=== PATIENT | female | born 1960 | race Caucasian/White ===

== ENCOUNTER 2016-06-18 13:16 | Emergency (ER) | payer MEDICAID ==
[~2016-06-18] VITALS: Ht 152.4 cm; Wt 75.0 kg
[~2016-06-18 13:16] MED LIST: IBUP-1542 PO; ORPH100T PO
[2016-06-18 13:20] VITALS: Ht 152.4 cm; Wt 75.0 kg
[2016-06-18] MEDS ORDERED: SOD CHLORIDE 0.9% 500 ML IV STA (15:57)
[2016-06-18] MEDS ORDERED: ONDANSETRON 4 MG INJ IV STA (15:57)
[2016-06-18] MEDS ORDERED: KETOROLAC 15 MG INJ IV STA (15:57)
[2016-06-18 16:22] LABS: ADD UMIC NO; URINE BILIRUBIN (Dip) NEGATIVE (NEGATIVE); URINE BLOOD (Dip) NEGATIVE (NEGATIVE); URINE COLOR LT. YELLOW (YELLOW); URINE GLUCOSE (Dip) NEGATIVE (NEGATIVE); URINE KETONES (Dip) NEGATIVE (NEGATIVE); URINE LEUKOCYTE ESTERASE (Dip) NEGATIVE (NEGATIVE); URINE NITRITE (Dip) NEGATIVE (NEGATIVE); URINE TOTAL PROTEIN (Dip) NEGATIVE (NEGATIVE); URINE UROBILINOGEN (Dip) 0.2 E.U./dL (0.1-1.0)
[2016-06-18 16:26] LABS: BASOPHILS % 0.3 % (0.0-2.0); EOSINOPHILS # 0.2 10^3/ul (0.0-0.5); HEMATOCRIT 39.8 % (37.0-47.0); HEMOGLOBIN 13.7 g/dl (12.0-16.0); LYMPHOCYTES # 3.4 10^3/ul (0.8-2.9); LYMPHOCYTES % 35.7 % (15.0-51.0); MEAN CORPUSCULAR HEMOGLOBIN 28.6 pg (29.0-33.0); MEAN CORPUSCULAR HGB CONC 34.5 g/dl (32.0-37.0); MEAN PLATELET VOLUME 8.2 fl (7.4-10.4); MONOCYTE # 0.8 10^3/ul (0.3-0.9); MONOCYTES % 8.1 % (0.0-11.0); NEUTROPHIL # 5.1 10^3/ul (1.6-7.5); NEUTROPHILS % 53.9 % (39.0-77.0); PLATELET COUNT 298 10^3/UL (140-440); RED CELL DISTRIBUTION WIDTH 12.9 % (11.5-14.5); UNCORRECTED WBC 9.5 10^3/ul (4.8-10.8); WHITE BLOOD COUNT 9.5 10^3/ul (4.8-10.8)
[2016-06-18 16:32] LABS: CONDITION 1
[2016-06-18 16:38] LABS: ALBUMIN 4.3 g/dl (3.3-4.9)
[2016-06-18 16:39] LABS: POTASSIUM 3.8 mmol/L (3.5-5.1)
[2016-06-18 16:41] LABS: ALBUMIN/GLOBULIN RATIO 1.16; BILIRUBIN,INDIRECT 0.1 mg/dl (0-1.1); BILIRUBIN,TOTAL 0.1 mg/dl (0.2-1.3); CREATININE 0.56 mg/dl (0.44-1.00)
[2016-06-18 16:42] LABS: CALCIUM 8.8 mg/dl (8.4-10.2)
--- NOTE | 2016-06-18 16:45 | RADRPT ---
PROCEDURE: CT Abdomen and pelvis without contrast. CLINICAL INDICATION: Abdominal Pain TECHNIQUE: CT scan of the abdomen and pelvis without contrast was performed on a multidetector hig h-resolution CT scan. . Coronal and sagittal reformatted images were obtained from the axial [facility] e images. Standard CT scan of the abdomen pelvis without contrast protocols were performed. The total exam CTDI equals 16.13 mGy and the total exam DLP equals 855.08 mGy-cm. One or more of the following dose reduction techniques were used: - Automated exposure control. - Adjustment of the mA and/or kV according to patient size. Use of iterative reconstruction technique. COMPARISON: None. FINDINGS: The liver spleen pancreas adrenal glands and kidneys are normal size configuration without focal les ions. There are no calcified urinary calculi or hydronephrosis bilaterally. The urinary bladder is unremarkable. The gallbladder is unremarkable without evidence of biliary ductal dilation. The st omach and small bowel are unremarkable. The appendix is unremarkable. There is diverticular change s of the distal descending and sigmoid colon without CT scan evidence of diverticulitis. The large bowel is otherwise unremarkable. No evidence of intra-abdominal free air free fluid abscesses or ly mphadenopathy. There is a small fat containing umbilical hernia. No herniated bowel or strangulati on. Minimal parenchymal changes involving the medial right lower lobe likely due to scarring. Lung bases are otherwise unremarkable. There is degenerative changes of the lower thoracic and lumbar s pine. Chronic anterior wedging of the T12 vertebral body. The osseous structures are otherwise unremarkable. IMPRESSION: 1. Diverticulosis of the distal descending and sigmoid colon without CT scan evidence of diverticul itis. 2. Unremarkable appendix. 3. No evidence of intra-abdominal free air fluid abscesses or lymphadenopathy. 4. No evidence of calcified urinary calculi or obstructive uropathy. 5. Small fat containing umbilical hernia without herniated bowel or strangulation. RPTAT:AAJJ Physician Ugo Date Time Electronically viewed and signed by Physician Ugo on 06/18/2016 16:45 BM/
--- NOTE | 2016-06-18 17:09 | ERD ---
ER Documentation Chief Complaint Date/Time DATE: 06/18/16 TIME: 17:03 Chief Complaint AP X 6 DAYS HPI This is a 55-year-old female who presents to the emergency room for evaluation of abdominal pain, bloating for the past 4 months. The patient states that her abdominal pain is gotten worse over the past 6 days. She localizes it to the lower portion of abdomen. 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 She denies any fevers, nausea or vomiting associated with this and came to the ER today for evaluation. She is not taking any medication for this and denies any aggravating or relieving factors for her pain. ROS All systems reviewed and are negative except as per history of present illness. Medications Home Meds Active Scripts Orphenadrine Citrate (Norflex) 100 Mg Tablet.sa, 100 MG PO BID for 3 Days, TAB.SA Prov:JOSE F STEVENSON 09/01/15 Ibuprofen* (Ibuprofen*) 600 Mg Tablet, 600 MG PO Q6 for 7 Days, TAB Prov:JOSE F STEVENSON 09/01/15 Ibuprofen* (Motrin*) 600 Mg Tab, 600 MG PO Q6, #20 TAB Prov:RAUL COCHRAN PA-C 08/10/15 Allergies Allergies: Coded Allergies: No Known Allergy (Unverified , 08/10/15) PMhx/Soc History of Surgery: No Anesthesia Reaction: No Hx Neurological Disorder: No Hx Respiratory Disorders: No Hx Cardiac Disorders: No Hx Psychiatric Problems: No Hx Miscellaneous Medical Probl: No Hx Alcohol Use: No Hx Substance Use: No Hx Tobacco Use: No Smoking Status: Never smoker Physical Exam Vitals Vital Signs Date Time Temp Pulse Resp B/P Pulse Ox O2 Delivery O2 Flow Rate FiO2 06/18/16 13:20 98.1 86 18 140/64 99 Physical Exam INITIAL VITAL SIGNS: Reviewed by me GENERAL: The patient is well developed and appropriate for usual state of health in no apparent distress HEENT: Pupils equal, round, and reactive to light. EOMI. There is no scleral icterus. NECK: C-spine is soft and supple, there is no meningismus. There is no cervical lymphadenopathy. LUNGS: Clear to auscultation bilaterally. There are no rales, wheezes or rhonchi. HEART: Regular rate and rhythm, no murmurs, clicks, rubs or gallops. ABDOMEN: Left lower quadrant tenderness to palpation, otherwise soft, non-tender , non-distended. There are bowel sounds in all four quadrants. No rebound or guarding. EXTREMITIES: There is no peripheral cyanosis or edema. No focal swelling or erythema. NEUROLOGICAL: The patient moves all four extremities with 5/5 strength. Cranial nerves II - XII are intact. Normal gait. Alert and oriented SKIN: There is no apparent rash or petechiae. HEME/LYMPHATIC: There is no evidence of excessive bruising or lymphedema. PSYCHIATRIC: The patient does not appear anxious or depressed. Result Diagram: 06/18/16 1615 06/18/16 1615 Results 24 hrs Laboratory Tests Test 06/18/16 16:04 06/18/16 16:15 Urine Bilirubin NEGATIVE Urine Clarity CLEAR Urine Color LT. YELLOW Urine Glucose NEGATIVE% Urine Hemoglobin NEGATIVE Urine Ketones NEGATIVE Urine Leukocyte Esterase NEGATIVE Urine Nitrite NEGATIVE Urine Specific [place] 1.025 Urine Total Protein NEGATIVE Urine Urobilinogen 0.2 E.U./dL Urine pH 6.0 Alanine Aminotransferase (ALT/SGPT) 32IU/L Albumin 4.3g/dl Albumin/Globulin Ratio 1.16 Alkaline Phosphatase 136IU/L Anion Gap 17 Aspartate Amino Transf (AST/SGOT) 28IU/L Basophils # 0.010^3/ul Basophils % 0.3% Blood Morphology Comment Blood Urea Nitrogen 17mg/dl Calcium Level 8.8mg/dl Carbon Dioxide Level 25mmol/L Chloride Level 102mmol/L Creatinine 0.56mg/dl Direct Bilirubin 0.00mg/dl Eosinophils # 0.210^3/ul Eosinophils % 2.0% Globulin 3.70g/dl Glucose Level 147mg/dl Hematocrit 39.8% Hemoglobin 13.7g/dl Indirect Bilirubin 0.1mg/dl Lipase 137U/L Lymphocytes # 3.410^3/ul Lymphocytes % 35.7% Mean Corpuscular Hemoglobin 28.6pg Mean Corpuscular Hemoglobin Concent 34.5g/dl Mean Corpuscular Volume 83.0fl Mean Platelet Volume 8.2fl Monocytes # 0.810^3/ul Monocytes % 8.1% Neutrophils # 5.110^3/ul Neutrophils % 53.9% Nucleated Red Blood Cells # 0.010^3/ul Nucleated Red Blood Cells % 0.0/100WBC Platelet Count 98328^3/UL Potassium Level 3.8mmol/L Red Blood Count 4.8010^6/ul Red Cell Distribution Width 12.9% Sodium Level 140mmol/L Total Bilirubin 0.1mg/dl Total Protein 8.0g/dl White Blood Count 9.510^3/ul Current Medications Medications (Trade) Dose Ordered Sig/Tyshawn Route PRN Reason Start Time Stop Time Status Last Admin Dose Admin Sodium Chloride (NS) 500 ml @ 500 mls/hr Q1H STAT IV 06/18/16 15:57 06/18/16 16:56 DC 06/18/16 16:21 Ondansetron HCl (Zofran Inj) 4 mg ONCE STAT IV 06/18/16 15:57 06/18/16 15:58 DC 06/18/16 16:21 Ketorolac Tromethamine (Toradol) 15 mg ONCE STAT IV 06/18/16 15:57 06/18/16 15:58 DC 06/18/16 16:21 Procedures/MDM CT abdomen pelvis without: 1. Diverticulosis of the distal descending and sigmoid colon without CT scan evidence of diverticulitis. 2. Unremarkable appendix. 3. No evidence of intra-abdominal free air fluid abscesses or lymphadenopathy. 4. No evidence of calcified urinary calculi or obstructive uropathy. 5. Small fat containing umbilical hernia without herniated bowel or strangulation. This 55-year-old female presents to the emergency room for evaluation of abdominal pain. The patient localizes her abdominal pain to the left lower quadrant. She also has a history of HPV and has not seen an [employer] physician. Her lab work is within normal limits including a urinalysis. CT of the abdomen and pelvis does reveal diverticulosis without evidence of diverticulitis at this time. This patient is tender in the left lower quadrant. I advised her to increase her fiber in her diet and she verbalized understanding. She is afebrile at this time but I do feel she is at increased risk for developing diverticulitis. The patient will be discharged with a prescription for Flagyl and Cipro at this time with instructions to hold off on filling the prescription until 48 hours and if a 48 hours she is to continue to have pain that she can get her prescriptions filled. She verbalized understanding and will be discharged home at this time. Departure Diagnosis: Primary Impression: Diverticulosis Additional Impression: Abdominal pain Condition: Stable MOHSEN SALAZAR DO Jun 18, 2016 17:09
[2016-06-18] MEDS ORDERED: METR500T PO (17:10)
[2016-06-18] MEDS ORDERED: CIPR500T4 PO (17:10)
[2016-06-18 17:45] VITALS: RESP 18; TEMP 98.1
== END 2016-06-18 17:45 | disposition home or self-care (01) ==
LOC: E/R 13:16
DX: K57.90 Diverticulosis of intestine, part unspecified, without perforation or abscess without bleeding (principal); R10.32 Left lower quadrant pain
CPT/HCPCS: 74176; 80053; 81003; 83690; 85025; J1885; J2405; J7040; 36415; 96374; 96375

== ENCOUNTER 2016-09-14 09:58 | Emergency (ER) | payer MEDICAID ==
[~2016-09-14] VITALS: Ht 160 cm; Wt 82.5 kg
[~2016-09-14 09:58] MED LIST changes: +CIPR500T4 PO; +METR500T PO
[2016-09-14 10:08] VITALS: Ht 160 cm; Wt 82.5 kg
[2016-09-14 10:39] VITALS: BP 117/84; PULSE 74; RESP 14
[2016-09-14 10:49] LABS: ADD SCAN DIFF NO
--- NOTE | 2016-09-14 11:00 | RADRPT ---
PROCEDURE: XR Chest. CLINICAL INDICATION: Chest pain. TECHNIQUE: Single frontal view of the chest was obtained COMPARISON: Two-view chest x-ray 09/01/2015. FINDINGS: The soft tissues are normal. There are degenerative osteophytes in the thoracic spine. The heart, cardiomediastinal silhouette and hilar structures are normal. The pulmonary vasculature is normal. There are vascular calcifications in the aortic arch. The lungs are clear. The costophrenic angles are normal. IMPRESSION: 1. Atherosclerosis aortic arch. 2. Spondylosis of the thoracic spine. 3. Stable chest x-ray with no evidence of active cardiopulmonary disease. RPTAT:AAJJ Physician Leann Date Time Electronically viewed and signed by Humberto Hyman Physician on 09/14/2016 11:00 PRABHAKAR/
[2016-09-14 11:08] LABS: INR 0.89; PT RATIO 0.9
[2016-09-14 11:09] LABS: PARTIAL THROMBOPLASTIN TIME 28.2 Sec (25.0-35.0)
[2016-09-14 11:10] LABS: ALBUMIN 3.7 g/dl (3.3-4.9); CHLORIDE 105 mmol/L (97-110); POTASSIUM 3.9 mmol/L (3.5-5.1); SODIUM 139 mmol/L (135-144)
[2016-09-14 11:13] LABS: ALANINE AMINOTRANSFERASE 33 IU/L (13-69); ALBUMIN/GLOBULIN RATIO 1.02; ALKALINE PHOSPHATASE 160 IU/L (42-121); ANION GAP 15 (8-16); ASPARTATE AMINO TRANSFERASE 20 IU/L (15-46); BILIRUBIN,INDIRECT 0.1 mg/dl (0-1.1); BILIRUBIN,TOTAL 0.1 mg/dl (0.2-1.3); BLOOD UREA NITROGEN 20 mg/dl (7-20); CARBON DIOXIDE 23 mmol/L (21-31); GLUCOSE 224 mg/dl (70-220); TOTAL PROTEIN 7.3 g/dl (6.1-8.1)
[2016-09-14] MEDS ORDERED: KETOROLAC 30 MG INJ IV STA (11:13)
[2016-09-14 11:14] LABS: CALCIUM 8.7 mg/dl (8.4-10.2)
[2016-09-14 11:16] LABS: BASOPHILS % 0.3 % (0.0-2.0); EOSINOPHILS # 0.2 10^3/ul (0.0-0.5); EOSINOPHILS % 2.2 % (0.0-7.0); LYMPHOCYTES # 2.9 10^3/ul (0.8-2.9); LYMPHOCYTES % 42.5 % (15.0-51.0); MEAN CORPUSCULAR HEMOGLOBIN 28.1 pg (29.0-33.0); MEAN CORPUSCULAR HGB CONC 33.3 g/dl (32.0-37.0); MEAN CORPUSCULAR VOLUME 84.4 fl (82.0-101.0); MEAN PLATELET VOLUME 10.7 fl (7.4-10.4); MONOCYTE # 0.5 10^3/ul (0.3-0.9); MONOCYTES % 6.6 % (0.0-11.0); NEUTROPHIL # 3.3 10^3/ul (1.6-7.5); PLATELET COUNT 290 10^3/UL (140-415); RED BLOOD COUNT 4.62 10^6/ul (4.20-5.40); RED CELL DISTRIBUTION WIDTH 12.8 % (11.5-14.5); WHITE BLOOD COUNT 6.8 10^3/ul (4.8-10.8)
[2016-09-14 11:32] LABS: TROPONIN-I < 0.012 ng/ml (0.00-0.12)
[2016-09-14 11:39] LABS: CREATINE KINASE 63 IU/L (23-200)
[2016-09-14 11:49] LABS: CK-MB 0.53 ng/ml (0.0-2.4)
[2016-09-14 11:57] LABS: TROPONIN-I < 0.012 ng/ml (0.00-0.12)
[2016-09-14] MEDS ORDERED: IBUP800T25 PO (12:11)
--- NOTE | 2016-09-14 12:11 | ERD ---
ER Documentation Chief Complaint Date/Time DATE: 09/14/16 TIME: 12:08 Chief Complaint chest pain and left sided facial pain x 4 days HPI This 13-year-old female presents to the emergency room for evaluation of chest pain and pressure for the past 4 days. The patient states that her pain has been constant and is worse with deep inspiration. She denies any palpitations or shortness of breath associated with this and she came to the emergency room today for evaluation. This patient denies any medical problems and denies being on any medications. She denies any trauma to the chest or recent travel. ROS All systems reviewed and are negative except as per history of present illness. Medications Home Meds Discontinued Scripts Ciprofloxacin Hcl* (Ciprofloxacin Hcl*) 500 Mg Tablet, 500 MG PO BID for 7 Days , TAB Prov:MOHSEN SALAZAR DO 06/18/16 Metronidazole* (Flagyl*) 500 Mg Tablet, 500 MG PO TID for 7 Days, TAB Prov:MOHSEN SALAZAR DO 06/18/16 Orphenadrine Citrate (Norflex) 100 Mg Tablet.sa, 100 MG PO BID for 3 Days, TAB.SA Prov:JOSE F STEVENSON 09/01/15 Ibuprofen* (Ibuprofen*) 600 Mg Tablet, 600 MG PO Q6 for 7 Days, TAB Prov:GRAHAMSHAISTAJOSE F C 09/01/15 Ibuprofen* (Motrin*) 600 Mg Tab, 600 MG PO Q6, #20 TAB Prov:RAUL COCHRAN PA-C 08/10/15 Allergies Allergies: Coded Allergies: No Known Allergy (Unverified , 09/14/16) PMhx/Soc Medical and Surgical Hx: pt denies Medical Hx, pt denies Surgical Hx History of Surgery: No Anesthesia Reaction: No Hx Neurological Disorder: No Hx Respiratory Disorders: No Hx Cardiac Disorders: No Hx Psychiatric Problems: No Hx Miscellaneous Medical Probl: No Hx Alcohol Use: No Hx Substance Use: No Hx Tobacco Use: No Smoking Status: Never smoker Physical Exam Vitals Vital Signs Date Time Temp Pulse Resp B/P Pulse Ox O2 Delivery O2 Flow Rate FiO2 09/14/16 10:39 74 14 117/84 98 Room Air 09/14/16 10:08 98.2 81 18 130/74 98 Physical Exam Const: No acute distress Head: Atraumatic Eyes: Normal Conjunctiva ENT: Normal External Ears, Nose and Mouth. Neck: Full range of motion..~ No meningismus. Resp: Clear to auscultation bilaterally Cardio: Regular rate and rhythm, no murmurs Abd: Soft, non tender, non distended. Normal bowel sounds Skin: Tender to palpation of the anterior chest wall which reproduces patient' s pain, no petechiae or rashes Back: No midline or flank tenderness Ext: No cyanosis, or edema Neur: Awake and alert Psych: Normal Mood and Affect Result Diagram: 09/14/16 1030 09/14/16 1030 Results 24 hrs Laboratory Tests Test 09/14/16 10:30 White Blood Count 6.810^3/ul Red Blood Count 4.6210^6/ul Hemoglobin 13.0g/dl Hematocrit 39.0% Mean Corpuscular Volume 84.4fl Mean Corpuscular Hemoglobin 28.1pg Mean Corpuscular Hemoglobin Concent 33.3g/dl Red Cell Distribution Width 12.8% Platelet Count 71166^3/UL Mean Platelet Volume 10.7fl Neutrophils % 48.0% Lymphocytes % 42.5% Monocytes % 6.6% Eosinophils % 2.2% Basophils % 0.3% Nucleated Red Blood Cells % 0.0/100WBC Neutrophils # 3.310^3/ul Lymphocytes # 2.910^3/ul Monocytes # 0.510^3/ul Eosinophils # 0.210^3/ul Basophils # 0.010^3/ul Nucleated Red Blood Cells # 0.010^3/ul Prothrombin Time 12.0Sec Prothrombin Time Ratio 0.9 INR International Normalized Ratio 0.89 Activated Partial Thromboplast Time 28.2Sec Sodium Level 139mmol/L Potassium Level 3.9mmol/L Chloride Level 105mmol/L Carbon Dioxide Level 23mmol/L Anion Gap 15 Blood Urea Nitrogen 20mg/dl Creatinine 0.60mg/dl Glucose Level 224mg/dl Calcium Level 8.7mg/dl Total Bilirubin 0.1mg/dl Direct Bilirubin 0.00mg/dl Indirect Bilirubin 0.1mg/dl Aspartate Amino Transf (AST/SGOT) 20IU/L Alanine Aminotransferase (ALT/SGPT) 33IU/L Alkaline Phosphatase 160IU/L Creatine Kinase 63IU/L Creatine Kinase Index 0.8 Creatinine Kinase MB (Mass) 0.53ng/ml Troponin I < 0.012ng/ml Total Protein 7.3g/dl Albumin 3.7g/dl Globulin 3.60g/dl Albumin/Globulin Ratio 1.02 Current Medications Medications (Trade) Dose Ordered Sig/Tyshawn Route PRN Reason Start Time Stop Time Status Last Admin Dose Admin Ketorolac Tromethamine (Toradol) 30 mg ONCE STAT IV 09/14/16 11:13 09/14/16 11:14 DC 09/14/16 11:49 Procedures/MDM EKG: Rate/Rhythm: [Normal Sinus Rhythm] QRS, ST, T-waves: [No changes consistent w/ acute ischemia] Impression: [No evidence of ischemia or arrhythmia] Chest X-ray 1V Interpreted by me: Soft Tissue: No acute abnormalities Bones: No acute abnormalities Mediastinum/Cardiac Silhouette/Lungs: [No acute abnormalities] This is a 13-year-old female presents to the emergency room for evaluation of chest pain. When I evaluated this patient she was not hypoxic, was in no acute distress and was sitting in bed comfortably. This patient did have tenderness to palpation of the anterior chest wall which reproduces her pain. I did obtain blood work including a troponin which was negative. Her EKG is nonischemic. Chest x-ray is clear, and the patient is in no acute distress upon my reevaluation after the administration of Toradol. This patient will be discharged home at this time with a prescription for Motrin, and a referral for outpatient clinic. Departure Diagnosis: Primary Impression: Chest pain Condition: Stable MOHSEN SALAZAR DO September 14, 2016 12:11
[2016-09-14 12:39] LABS: ADD UMIC NO; URINE BILIRUBIN (Dip) NEGATIVE (NEGATIVE); URINE BLOOD (Dip) NEGATIVE (NEGATIVE); URINE COLOR LT. YELLOW (YELLOW); URINE KETONES (Dip) NEGATIVE (NEGATIVE); URINE LEUKOCYTE ESTERASE (Dip) NEGATIVE (NEGATIVE); URINE NITRITE (Dip) NEGATIVE (NEGATIVE); URINE TOTAL PROTEIN (Dip) NEGATIVE (NEGATIVE); URINE UROBILINOGEN (Dip) 0.2 E.U./dL (0.1-1.0)
== END 2016-09-14 13:11 | disposition home or self-care (01) ==
LOC: E/R 09:58
DX: R07.89 Other chest pain (principal); R40.2252 Coma scale, best verbal response, oriented, at arrival to emergency department; R40.2142 Coma scale, eyes open, spontaneous, at arrival to emergency department; R40.2362 Coma scale, best motor response, obeys commands, at arrival to emergency department
CPT/HCPCS: 36415; 71010; 80053; 81003; 82550; 82553; 84484; 85025; 85610; 85730; 93005; 96374; J1885; Z7502; Z7610

== ENCOUNTER 2016-12-06 11:20 | Emergency (ER) | payer MEDICAID ==
[~2016-12-06] VITALS: Ht 157.5 cm; Wt 80.5 kg
[~2016-12-06 11:20] MED LIST changes: -CIPR500T4 PO; -IBUP-1542 PO; +IBUP800T25 PO; -METR500T PO; -ORPH100T PO
[2016-12-06 11:21] VITALS: Ht 157.5 cm; Wt 80.5 kg
[2016-12-06] MEDS ORDERED: KETOROLAC 30 MG INJ IM STA (11:40)
[2016-12-06] MEDS ORDERED: NAPR-260 PO (11:42)
--- NOTE | 2016-12-06 11:48 | ERD ---
ER Documentation Chief Complaint Date/Time DATE: 12/06/16 TIME: 11:42 Chief Complaint lower back pain x 4 days HPI Patient is a 56-year-old female who presents to the emergency department for concerns of lower back pain 4 days. Patient states the pain is localized to her lower back and radiates down her right leg. Patient states 4 days ago she did lift a heavy case of water. Patient states her pain started after that time. Patient denies any fevers, chills, nausea, vomiting, chest pain, shortness of breath, diaphoresis, or loss of consciousness. Patient denies any dysuria, frequency, urinary incontinence, stool incontinence, saddle anesthesia or night pain. Patient does report taking any medication from [facility], does not recall full name. Patient denies any falls or trauma. ROS All systems reviewed and are negative except as per history of present illness. Medications Home Meds Active Scripts Naproxen* (Naprosyn*) 500 Mg Tablet, 500 MG PO BID Y for PAIN AND/OR INFLAMMATION, #20 TAB Prov:MYRA TORRES PA-C 12/06/16 Ibuprofen* (Motrin*) 800 Mg Tab, 800 MG PO Q6H Y for PAIN AND OR ELEVATED TEMP, #30 TAB Prov:MOHSEN SALAZAR DO 09/14/16 Allergies Allergies: Coded Allergies: No Known Allergy (Unverified , 09/14/16) PMhx/Soc History of Surgery: No Anesthesia Reaction: No Hx Neurological Disorder: No Hx Respiratory Disorders: No Hx Cardiac Disorders: No Hx Psychiatric Problems: No Hx Miscellaneous Medical Probl: No Hx Alcohol Use: No Hx Substance Use: No Hx Tobacco Use: No Physical Exam Vitals Vital Signs Date Time Temp Pulse Resp B/P Pulse Ox O2 Delivery O2 Flow Rate FiO2 12/06/16 11:21 98.4 94 18 111/75 96 Physical Exam GENERAL: Well-developed, well-nourished female. Appears in no acute distress. HEAD: Normocephalic, atraumatic. EYES: Pupils are equally reactive bilaterally. EOMs grossly intact. No conjunctival erythema. ENT: Moist mucous membranes. No uvula deviation. No kissing tonsils. NECK: Supple. No meningismus. Normal range of motion of the neck. Nontender to palpation of cervical spine. LUNG: Clear to auscultation bilaterally. No rhonchi, wheezing, rales or coarse breath sounds. HEART: Regular rate and rhythm. No murmurs, rubs or gallops. ABDOMEN: No scars, ecchymosis or rashes noted. Soft, nontender, and nondistended. Positive bowel sounds in all four quadrants. No rebound tenderness , no guarding. (-) McBurney's point tenderness. No CVA tenderness. BACK: Nontender to palpation of the midline spine. Tender to palpation of bilateral lumbar paraspinous muscles. +Bilateral straight leg raise. EXTREMITIES: Equal pulses bilaterally. No peripheral clubbing, cyanosis or edema. No unilateral leg swelling. NEUROLOGIC: Alert and oriented. Moving all four extremities without any difficulty. Normal speech. Steady gait. SKIN: Normal color. Warm and dry. No rashes or lesions. Results 24 hrs Current Medications Medications (Trade) Dose Ordered Sig/Tyshawn Route PRN Reason Start Time Stop Time Status Last Admin Dose Admin Ketorolac Tromethamine (Toradol) 30 mg ONCE STAT IM 12/06/16 11:40 12/06/16 11:41 DC 12/06/16 11:49 Procedures/MDM MEDICAL DECISION MAKING: This is a 56-year-old female who presents with lower back pain radiating down her right leg which started 4 days ago after lifting a heavy case of water bottles. Vital signs were reviewed. Patient was afebrile. Patient denied any saddle anesthesia, urinary incontinence, bowel incontinence, night pain or recent trauma. Patient denied any fall or blunt trauma, I do not believe x-ray imaging are indicated at this time. Patient was given Toradol for her pain. Patient did report improvement in pain prior to discharge. Given these findings , the patient's presentation is most consistent with lumbar strain with sciatica. I have a much lower clinical concern for cauda equine syndrome, spinal fractures, epidural abscess, spinal metastases, osteomyelitis, aortic dissection, ruptured or leaking AA, DJD, muscle spasm, pyelonephritis or nephrolithiasis. PRESCRIPTIONS: Naproxen DISCHARGE: At this time, patient is stable for discharge and outpatient management. Compresses to the affected area were advised. RICE therapy and ROM exercises were advised to avoid stiffness. I have instructed the patient to follow-up with his/her primary care physician in 1-2 days. I have discussed with the patient the possibility of needing to see an denture contour wire specialist for further workup and imaging if the pain persists. I have instructed the patient to promptly return to the ER for any new or worsening symptoms including increased pain, swelling, warmth, urinary incontinence, stool incontinence, weakness or numbness. The patient and/or family expressed understanding of and agreement with this plan. All questions were answered. Home care instructions were provided. Departure Diagnosis: Primary Impression: Back pain Back pain location: low back pain Chronicity: acute Back pain laterality: unspecified Sciatica presence: with sciatica Sciatica laterality: bilateral sciatica Qualified Code: M54.42 - Acute low back pain with bilateral sciatica , unspecified back pain laterality Condition: Stable Patient Instructions: Back Pain W/ Sciatica Referrals: COMMUNITY CLINICS YOU HAVE RECEIVED A MEDICAL SCREENING EXAM AND THE RESULTS INDICATE THAT YOU DO NOT HAVE A CONDITION THAT REQUIRES URGENT TREATMENT IN THE EMERGENCY DEPARTMENT. FURTHER EVALUATION AND TREATMENT OF YOUR CONDITION CAN WAIT UNTIL YOU ARE SEEN IN YOUR DOCTORS OFFICE WITHIN THE NEXT 1-2 DAYS. IT IS YOUR RESPONSIBILITY TO MAKE AN APPOINTMENT FOR FOLOW-UP CARE. IF YOU HAVE A PRIMARY DOCTOR --you should call your primary doctor and schedule an appointment IF YOU DO NOT HAVE A PRIMARY DOCTOR YOU CAN CALL OUR PHYSICIAN REFERRAL HOTLINE AT IF YOU CAN NOT AFFORD TO SEE A PHYSICIAN YOU CAN CHOSE FROM THE FOLLOWING [facility] [address] [facility] [address] [facility] [address] [facility] [address] [facility] [facility] [address] [facility]. [facility]. [address]. [facility] YOU HAVE RECEIVED A MEDICAL SCREENING EXAM AND THE RESULTS INDICATE THAT YOU DO NOT HAVE A CONDITION THAT REQUIRES URGENT TREATMENT IN THE EMERGENCY DEPARTMENT. FURTHER EVALUATION AND TREATMENT OF YOUR CONDITION CAN WAIT UNTIL YOU ARE SEEN IN YOUR DOCTORS OFFICE WITHIN THE NEXT 1-2 DAYS. IT IS YOUR RESPONSIBILITY TO MAKE AN APPOINTMENT FOR FOLOW-UP CARE. IF YOU HAVE A PRIMARY DOCTOR --you should call your primary doctor and schedule and appointment IF YOU DO NOT HAVE A PRIMARY DOCTOR YOU CAN CALL OUR PHYSICIAN REFERRAL HOTLINE AT . IF YOU CAN NOT AFFORD TO SEE A PHYSICIAN YOU CAN CHOSE FROM THE FOLLOWING FORMERLY [facility], [facility] INSTITUTIONS: [facility] [address] [place] [address] [facility] [address] [place] [address] [facility] [address] [place] [address] Additional Instructions: Llame al doctor MAANA y bella nick JEFF PARA DENTRO DE 1-2 MOSS.Dgale a la secretaria que nosotros le instruimos hacer esta jeff.Avise o llame si smith condicin se empeora antes de la jeff. Regresa aqui si peor o no mejor. MYRA TORRES PA-C Dec 06, 2016 11:48
== END 2016-12-06 12:29 | disposition home or self-care (01) ==
LOC: FTE 11:20
DX: M54.42 Lumbago with sciatica, left side (principal); M54.41 Lumbago with sciatica, right side
CPT/HCPCS: 96372; J1885; Z7502

== ENCOUNTER 2017-04-25 12:42 | Emergency (ER) | payer MEDICAID, OTHER ==
[~2017-04-25] VITALS: Ht 142.2 cm; Wt 80.0 kg
[~2017-04-25 12:42] MED LIST changes: +NAPR-260 PO
[2017-04-25 13:00] VITALS: Ht 142.2 cm; Wt 80.0 kg
[2017-04-25] MEDS ORDERED: ONDANSETRON 4 MG INJ IV STA (14:40)
[2017-04-25] MEDS ORDERED: morphine 4 MG/ML VIAL IV STA (14:40)
[2017-04-25] MEDS ORDERED: KETOROLAC 30 MG INJ IV STA (14:40)
[2017-04-25] MEDS ORDERED: SOD CHLORIDE 0.9% 1,000 ML IV STA (14:40)
--- NOTE | 2017-04-25 15:09 | RADRPT ---
PROCEDURE: CT ABDOMEN AND PELVIS WITHOUT CONTRAST. CLINICAL INDICATION: Lower back pain and abdominal pain TECHNIQUE: CT scan of the abdomen and pelvis without contrast was performed on a multidetector hig h-resolution CT scanner. The patient was scanned without intravenous contrast. Coronal and sagittal reformatted images were obtained from the axial source images. Images were reviewed on a high-resol Handup PACS workstation. The total exam CTDI equals 21 mGy and the total exam DLP equals 1145.5 mGy-c m. One or more of the following dose reduction techniques were used: Automated exposure control. Adjustment of the mA and/or kV according to patient size. Use of iterative reconstruction technique. DICOM images are available COMPARISON: None FINDINGS: CT abdomen: The lung bases are clear. The heart size is within limits. There is no significant pericardial effus ion. Hepatic morphology is within normal limits. There is fatty infiltration of the liver. No gross conto ur deforming masses. The gallbladder is within normal limits. No evidence of intrahepatic or extrahe patic biliary dilatation. The spleen and pancreas are within normal limits. Both adrenal glands are within normal limits. Both kidneys are in normal anatomic position. No evidence of obstruction or hydronephrosis. No gross renal/ureteric calculi. The visualized GI tract demonstrate normal caliber loops of small and large bowel. No evidence of everardo wel obstruction. Stool filled loops of large bowel suggestive of constipation. The appendix is withi n normal limits. The unenhanced aorta is unremarkable. There is no significant retroperitoneal lymphadenopathy. CT pelvis: The bladder is within normal limits. The uterus is retroverted. There is sigmoid diverticulosis. No significant free fluid. No pelvic lymphadenopathy. The visualized osseous structures demonstrate mild degenerative changes. IMPRESSION: 1. No evidence of acute intra-abdominal/pelvic inflammatory process. No evidence of bowel obstructio n. The appendix is within normal limits. Sigmoid colon diverticulosis. 2. Fatty liver. 3. No gross renal/ureteric calculi. No evidence of obstruction or hydronephrosis. 4. No evidence of free fluid or free air. No gross focal fluid collections RPTAT: AAPP Ramesh Kaur Physician Date Time Electronically viewed and signed by Ramesh Kaur Physician on 04/25/2017 15:09 ALANIS/
[2017-04-25 15:26] LABS: BASOPHILS % 0.5 % (0.0-2.0); EOSINOPHILS # 0.2 10^3/ul (0.0-0.5); EOSINOPHILS % 1.7 % (0.0-7.0); HEMATOCRIT 40.6 % (37.0-47.0); HEMOGLOBIN 13.8 g/dl (12.0-16.0); LYMPHOCYTES # 3.5 10^3/ul (0.8-2.9); LYMPHOCYTES % 40.4 % (15.0-51.0); MEAN CORPUSCULAR HEMOGLOBIN 28.2 pg (29.0-33.0); MEAN CORPUSCULAR VOLUME 82.9 fl (82.0-101.0); MEAN PLATELET VOLUME 10.7 fl (7.4-10.4); MONOCYTE # 0.6 10^3/ul (0.3-0.9); MONOCYTES % 6.8 % (0.0-11.0); NEUTROPHIL # 4.4 10^3/ul (1.6-7.5); NEUTROPHILS % 50.3 % (39.0-77.0); PLATELET COUNT 291 10^3/UL (140-415); RED CELL DISTRIBUTION WIDTH 12.2 % (11.5-14.5); WHITE BLOOD COUNT 8.7 10^3/ul (4.8-10.8)
[2017-04-25 15:29] LABS: ADD UMIC NO; UR ASCORBIC ACID NEGATIVE (NEGATIVE); UR BILIRUBIN (Dip) NEGATIVE (NEGATIVE); UR BLOOD (Dip) NEGATIVE (NEGATIVE); UR CLARITY CLEAR (CLEAR); UR COLOR YELLOW (YELLOW); UR GLUCOSE (Dip) NEGATIVE (NEGATIVE); UR KETONES (Dip) NEGATIVE (NEGATIVE); UR LEUKOCYTE ESTERASE (Dip) NEGATIVE Leu/ul (NEGATIVE); UR NITRITE (Dip) NEGATIVE (NEGATIVE); UR SPECIFIC GRAVITY (Dip) 1.012 (1.003-1.030); UR TOTAL PROTEIN (Dip) NEGATIVE (NEGATIVE); UR UROBILINOGEN (Dip) NEGATIVE (NEGATIVE)
--- NOTE | 2017-04-25 15:40 | RADRPT ---
PROCEDURE: US Pelvis. CLINICAL INDICATION: Pelvic pain. TECHNIQUE: The pelvis was evaluated with transabdominal and transvaginal sonography in the axial a nd sagittal planes. COMPARISON: No prior study is available for comparison. FINDINGS: Uterus: 5.9 x 2.7 x 4.5 cm. Endometrium: 4.0 mm. Right ovary: 2.1 x 1.0 x 1.3 cm. Left ovary: 2.3 x 1.7 x 1.7 cm. Uterine masses: The uterus is heterogeneous with no discrete mass. Ovarian masses: None. Color Doppler and pulsed Doppler sonography demonstrate normal flow to the ova joão. Other pelvic masses: None. Free fluid: None. IMPRESSION: 1. Heterogeneous uterus with no discrete mass. 2. Otherwise unremarkable pelvic ultrasound. RPTAT: QQ .Nic Akhtar MD, Date Time Electronically viewed and signed by .Nic Akhtar MD, on 04/25/2017 15:40 .R/
[2017-04-25 15:45] LABS: ALBUMIN/GLOBULIN RATIO 1.02; BILIRUBIN,INDIRECT 0.2 mg/dl (0-1.1); BILIRUBIN,TOTAL 0.2 mg/dl (0.2-1.3); CALCIUM 9.2 mg/dl (8.4-10.2); CREATININE 0.6 mg/dl (0.44-1.00); TOTAL PROTEIN 7.9 g/dl (6.1-8.1)
--- NOTE | 2017-04-25 16:34 | ERD ---
ER Documentation Chief Complaint Chief Complaint LEFT FLANK PAIN WITH RADIATING PAIN TO PELVIC AREA HPI This is a 56-year-old female that presents to the emergency department complaining of left lower quadrant pain that radiates to the flank region that has been intermittent for the past 48 hours. She states she has had no fevers no shaking or chills. She denies any weight loss. She denies any recent or remote blunt or penetrating abdominal wall trauma. She has no chest pain or pressure that radiates the neck arm back or jaw. She states the pain is exacerbated with movement and when she attempts to stretch. She did not take any analgesic medication prior to arrival. She states she has never had these symptoms before. She denies any recent travel or prolonged immobilization. She has no shortness of breath at rest or exertion. She denies any frequency urgency or dysuria no abnormal vaginal bleeding. ROS All systems reviewed and are negative except as per history of present illness. Medications Home Meds Active Scripts Ibuprofen* (Motrin*) 800 Mg Tab, 800 MG PO Q6H Y for PAIN AND OR ELEVATED TEMP, #30 TAB Prov:MOHSEN SALAZAR DO 09/14/16 Discontinued Scripts Naproxen* (Naprosyn*) 500 Mg Tablet, 500 MG PO BID Y for PAIN AND/OR INFLAMMATION, #20 TAB Prov:MYRA TORRES PA-C 12/06/16 Allergies Allergies: Coded Allergies: No Known Allergy (Unverified , 04/25/17) PMhx/Soc Medical and Surgical Hx: pt denies Medical Hx, pt denies Surgical Hx History of Surgery: No Anesthesia Reaction: No Hx Neurological Disorder: No Hx Respiratory Disorders: No Hx Cardiac Disorders: No Hx Psychiatric Problems: No Hx Miscellaneous Medical Probl: No Hx Alcohol Use: No Hx Substance Use: No Hx Tobacco Use: No Smoking Status: Never smoker Physical Exam Vitals Vital Signs Date Time Temp Pulse Resp B/P Pulse Ox O2 Delivery O2 Flow Rate FiO2 04/25/17 13:00 98.8 89 20 132/62 97 Physical Exam Constitutional:Well-developed. Well-nourished. HEENT:Normocephalic. Atraumatic.Pupils were equal round reactive to light. Moist mucous membranes.No tonsillar exudates. Neck: No nuchal rigidity. No lymphadenopathy. No posterior cervical spine tenderness or step-offs. Respiratory: Not using accessory muscles of respiration.Lungs were clear to auscultation bilaterally. No rhonchi. No rales. No wheezing. Cardiovascular: Regular rate regular rhythm.No murmurs. No rubs were appreciated.S1, S2 normal. Distal pulses are palpable 2+ bilaterally. GI: Abdomen was soft. Tenderness in the left lower quadrant. Non Distended. No pulsatile abdominal masses or bruits. No rebound. No guarding. Bowel sounds were present and normal. Left CVA tenderness. Muscle skeletal: Full range of motion of both the upper and lower extremities bilaterally.Normal muscle tone.No assymetrical calf tenderness or swelling. Skin: No petechia, no purpura. No lesions on the palms or the soles of the feet. No maculopapular rash. NEURO: Patient was alert, awake, orientated x3.No facial droop. Gait observed and normal with no ataxia.Speech had regular rate and rhythm. No focal neurological deficits. Result Diagram: 04/25/17 1505 04/25/17 1505 Results 24 hrs Laboratory Tests Test 04/25/17 15:05 White Blood Count 8.710^3/ul Red Blood Count 4.9010^6/ul Hemoglobin 13.8g/dl Hematocrit 40.6% Mean Corpuscular Volume 82.9fl Mean Corpuscular Hemoglobin 28.2pg Mean Corpuscular Hemoglobin Concent 34.0g/dl Red Cell Distribution Width 12.2% Platelet Count 49243^3/UL Mean Platelet Volume 10.7fl Neutrophils % 50.3% Lymphocytes % 40.4% Monocytes % 6.8% Eosinophils % 1.7% Basophils % 0.5% Nucleated Red Blood Cells % 0.0/100WBC Neutrophils # 4.410^3/ul Lymphocytes # 3.510^3/ul Monocytes # 0.610^3/ul Eosinophils # 0.210^3/ul Basophils # 0.010^3/ul Nucleated Red Blood Cells # 0.010^3/ul Urine Color YELLOW Urine Clarity CLEAR Urine pH 7.0 Urine Specific [place] 1.012 Urine Ketones NEGATIVEmg/dL Urine Nitrite NEGATIVEmg/dL Urine Bilirubin NEGATIVEmg/dL Urine Urobilinogen NEGATIVEmg/dL Urine Leukocyte Esterase NEGATIVELeu/ul Urine Hemoglobin NEGATIVEmg/dL Urine Glucose NEGATIVEmg/dL Urine Total Protein NEGATIVEmg/dl Sodium Level 143mmol/L Potassium Level 4.0mmol/L Chloride Level 104mmol/L Carbon Dioxide Level 28mmol/L Anion Gap 15 Blood Urea Nitrogen 12mg/dl Creatinine 0.60mg/dl Glucose Level 174mg/dl Calcium Level 9.2mg/dl Total Bilirubin 0.2mg/dl Direct Bilirubin 0.00mg/dl Indirect Bilirubin 0.2mg/dl Aspartate Amino Transf (AST/SGOT) 21IU/L Alanine Aminotransferase (ALT/SGPT) 34IU/L Alkaline Phosphatase 135IU/L Total Protein 7.9g/dl Albumin 4.0g/dl Globulin 3.90g/dl Albumin/Globulin Ratio 1.02 Amylase Level 103U/L Lipase 144U/L Current Medications Medications (Trade) Dose Ordered Sig/Tyshawn Route PRN Reason Start Time Stop Time Status Last Admin Dose Admin Sodium Chloride (NS) 1,000 ml @ 1,000 mls/hr Q1H STAT IV 04/25/17 14:40 04/25/17 15:39 DC 04/25/17 15:20 Morphine Sulfate (morphine) 4 mg ONCE STAT IV 04/25/17 14:40 04/25/17 14:42 DC 04/25/17 15:19 Ondansetron HCl (Zofran Inj) 4 mg ONCE STAT IV 04/25/17 14:40 04/25/17 14:42 DC 04/25/17 15:20 Ketorolac Tromethamine (Toradol) 30 mg ONCE STAT IV 04/25/17 14:40 04/25/17 14:42 DC 04/25/17 15:20 Procedures/MDM This patient presented to the emergency department with abdominal pain and was seen and evaluated by myself. My differential diagnosis included but was not limited to abdominal aortic aneurysm, appendicitis, pancreatitis, perforated peptic ulcer, perforated viscus, Boerhaaves syndrome or visceral pain such as diverticulitis, DKA, esophagitis, hepatitis or bowel obstruction. The patient was placed on a corncob pipes assembler, continuous pulse oximetry, and IV access was established by nursing staff. She was given IV Toradol and intravenous morphine as well as Zofran as an antiemetic. Patient has no cardiac risk factors and I did not feel her symptoms were result of atypical myocardial ischemia. The patient did have reproducible tenderness in the left lower quadrant therefore did obtain a CT scan of the abdomen which showed diverticulosis without diverticulitis. An ultrasound of the pelvis was also obtained and there is no evidence abnormal masses such as fibroids or ovarian cyst. The patient's pain is completely resolved and she felt comfortable being discharged home. The patient was discharged home in fair condition. They were instructed to return to the emergency department at any time if there was any worsening of their condition. The patient stated they would follow up with their PCP in the next 24-48 hours to initiate a suitable medication regimen under the care of their PCP as well as to allow their PCP to monitor any drug reactions. The patient was discharged home with prescriptions after they gave informed consent to the new medication. They were also fully informed by myself on the adverse effects and adverse drug interactions in order to provide adequate safeguards to prevent possible adverse reactions to medications. Departure Diagnosis: Primary Impression: Diverticulosis of colon Condition: SHELBY Gore Apr 25, 2017 16:34
[2017-04-25] MEDS ORDERED: NAPR-260 PO (16:35)
[2017-04-25 18:02] VITALS: BP 125/97; PULSE 65; RESP 16; TEMP 97.7
== END 2017-04-25 18:05 | disposition home or self-care (01) ==
LOC: E/R 12:42
DX: K57.30 Diverticulosis of large intestine without perforation or abscess without bleeding (principal)
CPT/HCPCS: 36415; 74176; 76830; 76856; 80053; 81003; 82150; 83690; 85025; 96374; 96375; J1885; J2270; J2405; J7030; Z7502

== ENCOUNTER 2018-05-13 11:13 | Emergency (ER) | payer MEDICAID, OTHER ==
[~2018-05-13] VITALS: Ht 167.6 cm; Wt 80.0 kg
[~2018-05-13 11:13] MED LIST changes: -IBUP800T25 PO; +IBUP800T48 PO; -NAPR-260 PO; +NAPR-985 PO
[2018-05-13 11:20] VITALS: BP 134/63; PULSE 90; RESP 20; Ht 167.6 cm; Wt 80.0 kg
[2018-05-13] MEDS ORDERED: KETOROLAC 30 MG INJ IM STA (13:43)
[2018-05-13] MEDS ORDERED: NAPR-985 PO (15:04)
--- NOTE | 2018-05-13 15:37 | ERD ---
ER Documentation Chief Complaint Chief Complaint Complains of left neck pain HPI Patient is a 57-year-old female presents the ER for concerns of left-sided neck pain for the last 3 days. Patient states the pain is localized to her left neck and trapezius muscle. Patient denies any radiation of the pain. Patient denies any chest pain or shortness of breath. Patient denies any nausea, vomiting, diaphoresis or LOC. Patient also reports feeling "ball" in her epigastric region. Patient states she palpates a small mass and she is unsure what it is. Patient states she feels his mouth when leaning forward. Patient denies any nausea, vomiting, abdominal pain or diarrhea. Patient denies any fevers or chills. Patient denies any cough, neck pain, neck stiffness, headache, blurry vision. ROS All systems reviewed and are negative except as per history of present illness. Medications Home Meds Active Scripts Naproxen* (Naprosyn*) 500 Mg Tablet, 500 MG PO BID PRN for PAIN AND/OR INFLAMMATION, #30 TAB Prov:MYRA TORRES PA-C 05/13/18 Naproxen* (Naprosyn*) 500 Mg Tablet, 500 MG PO BID, #20 TAB Prov:SHELBY ARGUETA MD 04/25/17 Ibuprofen* (Motrin*) 800 Mg Tab, 800 MG PO Q6H PRN for PAIN AND OR ELEVATED TEMP, #30 TAB Prov:MOHSEN SALAZAR DO 09/14/16 Allergies Allergies: Coded Allergies: No Known Allergy (Unverified , 04/25/17) PMhx/Soc History of Surgery: No Anesthesia Reaction: No Hx Neurological Disorder: No Hx Respiratory Disorders: No Hx Cardiac Disorders: No Hx Psychiatric Problems: No Hx Miscellaneous Medical Probl: No Hx Alcohol Use: No Hx Substance Use: No Hx Tobacco Use: No Smoking Status: Never smoker FmHx Family History: No diabetes Physical Exam Vitals Vital Signs Date Temp Pulse Resp B/P (MAP) Pulse Ox O2 O2 Flow FiO2 Time Delivery Rate 05/13/18 97.5 90 20 134/63 97 11:20 (86) Physical Exam GENERAL: Well-developed, well-nourished female. Appears in no acute distress. Speaking in full sentences HEAD: Normocephalic, atraumatic. No deformities or ecchymosis. EYE: Pupils equal, round, and reactive to light. EOMs intact. No conjunctival erythema. No eye discharge. ENT: External ear without any masses or tenderness. Auditory canals clear bilaterally. TM visualized bilaterally, non-erythematous, non-bulging. Nasal mucosa pink with no discharge. Oropharynx is pink without any tonsillar erythema or exudates. No uvula deviation. No kissing tonsils. NECK: Supple. No meningismus. Normal ROM of the neck. Tender to palpation of the left trapezius muscle. Pain is reproducible. Positive spasms noted. LUNG: Clear to auscultation bilaterally. No rhonchi, wheezing, rales or coarse breath sounds. HEART: Regular rate and rhythm. No murmurs, rubs or gallops. ABDOMEN: Soft, nontender, and nondistended. No pulsatile dictating masses noted. Positive bowel sounds in all four quadrants. No rebound tenderness, no guarding. (-) McBurney's point tenderness. No CVA tenderness.. EXTREMITES: Equal pulses bilaterally. No peripheral clubbing, cyanosis or edema. No unilateral leg swelling. NEUROLOGIC: Alert and oriented to person, place and time. Cranial nerves II through XII intact. Moving all four extremities. 5/5 strength in all extremities. Normal speech. Steady gait. Equal apartment groundskeeper strength bilaterally. No pronator drift. SKIN: Normal color. Warm and dry. No rashes or lesions. Result Diagram: 05/13/18 1401 05/13/18 1401 Results 24 hrs Laboratory Tests Test 05/13/18 14:01 White Blood Count 6.8 10^3/ul Red Blood Count 4.89 10^6/ul Hemoglobin 13.6 g/dl Hematocrit 40.9 % Mean Corpuscular Volume 83.6 fl Mean Corpuscular Hemoglobin 27.8 pg Mean Corpuscular Hemoglobin Concent 33.3 g/dl Red Cell Distribution Width 12.8 % Platelet Count 308 10^3/UL Mean Platelet Volume 10.4 fl Immature Granulocytes % 0.100 % Neutrophils % 44.4 % Lymphocytes % 46.1 % Monocytes % 6.9 % Eosinophils % 2.1 % Basophils % 0.4 % Nucleated Red Blood Cells % 0.0 /100WBC Immature Granulocytes # 0.010 10^3/ul Neutrophils # 3.0 10^3/ul Lymphocytes # 3.1 10^3/ul Monocytes # 0.5 10^3/ul Eosinophils # 0.1 10^3/ul Basophils # 0.0 10^3/ul Nucleated Red Blood Cells # 0.0 10^3/ul Sodium Level 138 mmol/L Potassium Level 4.1 mmol/L Chloride Level 105 mmol/L Carbon Dioxide Level 24 mmol/L Anion Gap 9 Blood Urea Nitrogen 15 mg/dl Creatinine 0.45 mg/dl Est Glomerular Filtrat Rate mL/min > 60 mL/min Glucose Level 151 mg/dl Calcium Level 9.3 mg/dl Troponin I < 0.012 ng/ml Lipase 130 U/L Current Medications Medications Dose Sig/Tyshawn Start Time Status Last (Trade) Ordered Route PRN Stop Time Admin Dose Reason Admin Ketorolac 30 mg ONCE STAT 05/13/18 DC 05/13/18 Tromethamine IM 13:43 05/13/18 13:54 (Toradol) 13:45 Procedures/MDM ED COURSE: The patient was stable throughout ED course. I kept the patient and/or family informed of laboratory and diagnostic imaging results throughout the ED course. EKG: Read by Dr. Álvarez, attending physician. EKG shows normal sinus rhythm at a rate of 83 bpm No arrhythmias, acute ST elevations or T wave changes were noted. DIAGNOSTIC IMAGING: Read by radiologist. DIAGNOSTIC IMAGING REPORT Patient: ABHISHEK QUIROGA : 1960 Age: 57 Sex: F [id number] DOS: 05/13/18 1343 Ordering MD: MYRA TORRES PA-C Location: [facility] Room/Bed: PROCEDURE: CT ABDOMEN AND PELVIS WITHOUT CONTRAST. CLINICAL INDICATION: Right upper epigastric pain TECHNIQUE: CT scan of the abdomen and pelvis without contrast was performed on a multidetector high-resolution CT scanner. The patient was scanned without intravenous contrast. Coronal and sagittal reformatted images were obtained from the axial source images. Images were reviewed on a high-resolution PACS workstation. The total exam CTDI equals 16.9 mGy and the total exam DLP equals 170.4 mGy-cm. One or more of the following dose reduction techniques were used: Automated exposure control. Adjustment of the mA and/or kV according to patient size. Use of iterative reconstruction technique. DICOM images are available COMPARISON: None FINDINGS: CT abdomen: The lung bases are clear. The heart size is within normal limits. There is no significant pericardial effusion. Hepatic morphology is within normal limits. No gross contour deforming masses. The gallbladder is within normal limits. No evidence of intrahepatic or extrahepatic biliary dilatation. The spleen and pancreas are within normal limits. Both adrenal glands are within normal limits. Both kidneys are in normal anatomic position. No evidence of obstruction or hydronephrosis. No gross renal/ureteric calculi. The visualized GI tract demonstrate normal caliber loops of small and large bowel. No evidence of bowel obstruction. Stool filled loops large bowel suggestive of constipation. The appendix is within normal limits. The unenhanced aorta is unremarkable. No significant retroperitoneal lymp hadenopathy. CT pelvis: The bladder is distended. Uterus is unremarkable. Rectosigmoid colon demonstrate diverticulosis. No significant free fluid. No pelvic lymphadenopathy. The visualized osseous structures demonstrate multilevel degenerative disc disease of the spine. IMPRESSION: 1. No evidence of acute intra-abdominal/pelvic inflammatory process. No evidence of bowel obstruction. The appendix is within normal limits. Sigmoid diverticulosis. 2. No gross renal/ureteric calculi. No evidence of obstructive uropathy. 3. No evidence of free fluid or free air. No gross focal fluid collections. 4. Gallbladder appears to be within normal limits. If concern for gallstone remains, ultrasound would be more sensitive. RPTAT: AAPP Physician Angeles Date Time Electronically viewed and signed by Physician Angeles on 05/13/2018 14:34 ALANIS/ CC: MYRA TORRES PA-C [id number] PROCEDURES: None. MEDICATIONS GIVEN: Toradol IM Patient tolerated medication well with no adverse reactions. Patient reported improvement in pain. MEDICAL DECISION MAKING: This is a 57-year-old female who presents to the ER for concerns of left-sided neck pain for the last 3 days as well as "ball" in her epigastric region.. Vital signs were reviewed. Patient is afebrile. On exam patient did he have reproducible trapezius muscle pain. Positive spasms were noted Blood work and imaging studies were obtained. EKG showed normal sinus rhythm. CBC showed no evidence of severe anemia or systemic infection. BMP showed no severe electrolyte abnormalities, acidosis, alkalosis or renal injury. Lipase is within normal limits. Troponin was negative. CT scan of the abdomen and pelvis showed 1. No evidence of acute intra- abdominal/pelvic inflammatory process. No evidence of bowel obstruction. The appendix is within normal limits. Sigmoid diverticulosis. 2. No gross renal/ureteric calculi. No evidence of obstructive uropathy. 3. No evidence of free fluid or free air. No gross focal fluid collections. 4. Gallbladder appears to be within normal limits. If concern for gallstone remains, ultrasound would be more sensitive. At this time, the patient's presentation is most consistent with trapezius muscle spasms. Patient's epigastric "ball". Is likely a lipoma which she is palpating. Differential diagnosis included but was not limited to ACS, arrhythmia, maria eugenia carditis, aortic dissection, CVA, TIA, cervical spine fracture or dislocation, meningitis, whiplash injury, ruptured AAA, mesenteric ischemia, lower lobe pneumonia, DKA, bowel perforation, bowel obstruction, cholecystitis, choledocholithiasis, ascending cholangitis, hepatic abscess, pancreatitis, GERD, splenic rupture, diverticulitis, pyelonephritis, nephrolithiasis, appendicitis, constipation. Patient was advised to follow-up with her primary care physician for further management of her studies. A copy of blood work and imaging states was given to the patient. Patient was nontoxic, non-opening prior to discharge. PRESCRIPTIONS: Naproxen DISCHARGE: At this time, patient is stable for discharge and outpatient management. I have instructed the patient to follow-up with his/her primary care physician in 1-2 days. I have instructed the patient to promptly return to the ER at any time for any new or worsening symptoms including increased pain, nausea, vomiting, diarrhea, fever, weakness or LOC. The patient and/or family expressed understanding of and agreement with this plan. All questions were answered. Home care instructions were provided. Disclaimer: Inadvertent spelling and grammatical errors are likely due to EHR/dictation software use and do not reflect on the overall quality of patient care. Also, please note that the electronic time recorded on this note does not necessarily reflect the actual time of the patient encounter. Departure Diagnosis: Primary Impression: Musculoskeletal pain Additional Impression: Epigastric pain Condition: Fair Patient Instructions: Muscle Spasm, Neck Pain, No Trauma, Epigastric Pain (Uncertain Cause) Referrals: [facility] YOU HAVE RECEIVED A MEDICAL SCREENING EXAM AND THE RESULTS INDICATE THAT YOU DO NOT HAVE A CONDITION THAT REQUIRES URGENT TREATMENT IN THE EMERGENCY DEPARTMENT. FURTHER EVALUATION AND TREATMENT OF YOUR CONDITION CAN WAIT UNTIL YOU ARE SEEN IN YOUR DOCTORS OFFICE WITHIN THE NEXT 1-2 DAYS. IT IS YOUR RESPONSIBILITY TO MAKE AN APPOINTMENT FOR FOLOW-UP CARE. IF YOU HAVE A PRIMARY DOCTOR --you should call your primary doctor and schedule an appointment IF YOU DO NOT HAVE A PRIMARY DOCTOR YOU CAN CALL OUR PHYSICIAN REFERRAL HOTLINE AT IF YOU CAN NOT AFFORD TO SEE A PHYSICIAN YOU CAN CHOSE FROM THE FOLLOWING [facility] [address] [facility] [address] [facility] [facility] [address] [facility] [address] [facility] [address] [facility] [facility] [address] [facility]. [facility] YOU HAVE RECEIVED A MEDICAL SCREENING EXAM AND THE RESULTS INDICATE THAT YOU DO NOT HAVE A CONDITION THAT REQUIRES URGENT TREATMENT IN THE EMERGENCY DEPARTMENT. FURTHER EVALUATION AND TREATMENT OF YOUR CONDITION CAN WAIT UNTIL YOU ARE SEEN IN YOUR DOCTORS OFFICE WITHIN THE NEXT 1-2 DAYS. IT IS YOUR RESPONSIBILITY TO MAKE AN APPOINTMENT FOR FOLOW-UP CARE. IF YOU HAVE A PRIMARY DOCTOR --you should call your primary doctor and schedule and appointment IF YOU DO NOT HAVE A PRIMARY DOCTOR YOU CAN CALL OUR PHYSICIAN REFERRAL HOTLINE AT . IF YOU CAN NOT AFFORD TO SEE A PHYSICIAN YOU CAN CHOSE FROM THE FOLLOWING [facility] INSTITUTIONS: [facility] [address] [place] [address] [facility] [address] [place] [address] [facility] [address] [place] [address] Additional Instructions: Llame al doctor MAANA y bella nick JEFF PARA DENTRO DE 1-2 MOSS.Dgale a la secretaria que nosotros le instruimos hacer esta jeff.Avise o llame si smith condicin se empeora antes de la jeff. Regresa aqui si peor o no mejor. MYRA TORRES PA-C May 13, 2018 15:37
== END 2018-05-13 15:13 | disposition home or self-care (01) ==
LOC: FTE 11:13
DX: M54.2 Cervicalgia (principal); R10.13 Epigastric pain
CPT/HCPCS: 36415; 74176; 80048; 83690; 84484; 85025; 93005; 96372; J1885; Z7502

== ENCOUNTER 2018-11-19 09:17 | Emergency (ER) | payer OTHER ==
[~2018-11-19] VITALS: Ht 157.5 cm; Wt 84.1 kg
[2018-11-19 09:21] VITALS: Ht 157.5 cm; Wt 84.1 kg
[2018-11-19] MEDS ORDERED: KETOROLAC 60 MG INJ IM STA (09:39)
[2018-11-19] MEDS ORDERED: KETOROLAC 30 MG INJ IM STA (09:42)
[2018-11-19] MEDS ORDERED: IBUP-1542 PO (10:33)
[2018-11-19] MEDS ORDERED: ACET325T33 PO (10:33)
--- NOTE | 2018-11-19 10:42 | ERD ---
ER Documentation Chief Complaint Chief Complaint rt knee pain x 3 days HPI History of Present Illness: 58-year-old female with history of diabetes coming in today with complaint of right knee pain is been present for 5 days. Patient reports a fall in April 2018. Patient reports recent exacerbation of pain in the past 5 days with no new trauma or injury. Denies any other associated symptoms. At home pharmacological/nonpharmacological treatment for symptoms: Ibuprofen Denies social concerns; Denies recent foreign travel ROS All systems reviewed and are negative except as per history of present illness. Medications Home Meds Active Scripts Acetaminophen* (Tylenol*) 325 Mg Tablet, 2 TAB PO Q6 PRN for PAIN AND OR ELEVATED TEMP, #30 TAB Prov:KARLA HELM V DIRECTOR OF SUSTAINABILITY PROGRAMS 11/19/18 Ibuprofen* (Motrin*) 600 Mg Tab, 600 MG PO Q6H PRN for PAIN AND/OR INFLAMMATION, #30 TAB Prov:KARLA HELM V DIRECTOR OF SUSTAINABILITY PROGRAMS 11/19/18 Naproxen* (Naprosyn*) 500 Mg Tablet, 500 MG PO BID PRN for PAIN AND/OR INFLAMM ATION, #30 TAB Prov:MYRA TORRES PA-C 05/13/18 Naproxen* (Naprosyn*) 500 Mg Tablet, 500 MG PO BID, #20 TAB Prov:SHELBY ARGUETA MD 04/25/17 Ibuprofen* (Motrin*) 800 Mg Tab, 800 MG PO Q6H PRN for PAIN AND OR ELEVATED TEMP, #30 TAB Prov:MOHSEN SALAZAR DO 09/14/16 Allergies Allergies: Coded Allergies: No Known Allergy (Unverified , 04/25/17) PMhx/Soc Medical and Surgical Hx: pt denies Surgical Hx History of Surgery: No Anesthesia Reaction: No Hx Neurological Disorder: No Hx Respiratory Disorders: No Hx Cardiac Disorders: No Hx Psychiatric Problems: No Hx Miscellaneous Medical Probl: No Hx Alcohol Use: No Hx Substance Use: No Hx Tobacco Use: No Smoking Status: Never smoker FmHx Family History: diabetes, coronary disease Physical Exam Vitals Vital Signs Date Temp Pulse Resp B/P (MAP) Pulse Ox O2 O2 Flow FiO2 Time Delivery Rate 11/19/18 97.2 87 18 119/58 98 09:21 (78) Physical Exam Const: No acute distress, afebrile Head: Atraumatic Eyes: Normal Conjunctiva ENT: Normal External Ears, Nose and Mouth. Neck: Full range of motion. No meningismus. Resp: Clear to auscultation bilaterally Cardio: Regular rate and rhythm, no murmurs Abd: Soft, non tender, non distended. No guarding, no masses, no rigidity Skin: No petechiae or rashes Back: No midline or flank tenderness Ext: No cyanosis, or edema; right lower extremity: Tenderness to palpation to right medial knee, mild superficial swelling noted, no warmth or erythema Neur: Awake and alert x3, speaking in clear sentences, no focal deficits or facial asymmetry Psych: Normal Mood and Affect Results 24 hrs Current Medications Medications Dose Sig/Tyshawn Start Time Status Last (Trade) Ordered Route PRN Stop Time Admin Dose Reason Admin Ketorolac 60 mg ONCE STAT 11/19/18 DC Tromethamine IM 09:39 (Toradol) 11/19/18 09:43 Ketorolac 30 mg ONCE STAT 11/19/18 DC 11/19/18 Tromethamine IM 09:42 09:46 (Toradol) 11/19/18 09:43 Procedures/MDM ED COURSE: ED course includes a thorough examination and history. The patient was stable throughout ED course. I kept the patient and/or family informed of laboratory and diagnostic imaging results throughout the ED course. LABS: None MEDICATIONS GIVEN IN ER: Ketorolac Patient tolerated medication well with no adverse reactions. Patient reported improvement in pain. DIAGNOSTIC IMAGING: Read by radiologist. Right knee x-ray: IMPRESSION: Normal x-ray of the right knee. .Bismark Multani MD, MD Date Time Electronically viewed and signed by .Bismark Multani MD, MD on 11/19/2018 10:26 PROCEDURES: None. MEDICAL DECISION MAKING: Low suspicion for life-threatening medical emergency. Low suspicion for orthopedic emergency requires hospitalization or immediate surgical intervention. Low suspicion for femur fracture, patella fracture, tibial plateau fracture, septic joint, gout, popliteal cyst, prepatellar bursitis, patellofemoral syndrome, patellar tendinitis, Manisha-Schlatter disease, osteoarthritis, osteomy elitis, DVT or compartment syndrome. At this time, unable to rule out any meniscus and knee ligament injuries. Otherwise healthy patient presenting with constellation of symptoms likely representing uncomplicated [x] as characterized by history, physical exam findings [, radiologic/lab findings]. Patient reassessment @ []: Patient hemodynamically stable. No respiratory distress, otherwise relatively well appearing and nontoxic. Disposition given. Patient educated on diagnoses, prescriptions, follow-up care, return precautions. Strict return precautions given for worsening condition; questions answered discharge. Patient verbalizes understanding of discharge instructions. PRESCRIPTIONS FOR HOME: Ibuprofen, acetaminophen DISPOSITION: DISCHARGE At this time, patient is stable for discharge and outpatient management. I have instructed the patient to follow-up with his/her primary care physician in 1-2 days. I have discussed with the patient the possibility of needing to see a specialist for further workup and imaging studies if symptoms persist. I have instructed the patient to promptly return to the ER for any new or worsening symptoms including increased pain, fever, nausea, vomiting, weakness or LOC. The patient and/or family expressed understanding of and agreement with this plan. All questions were answered. Home care instructions were provided. DISCLAIMER: Inadvertent spelling and grammatical errors are likely due to EHR/dictation software use and do not reflect on the overall quality of patient care. Also, please note that the electronic time recorded on this note does not necessarily reflect the actual time of the patient encounter. Departure Diagnosis: Primary Impression: Knee pain Condition: Stable Patient Instructions: Knee Pain, Uncertain Cause [facility] Usted se murrieta hecho un examen mdico de control que le indica que no est en nick condicin que requiera tratamiento urgente en el Departamento de Emergencia. Un estudio ms profundo y el tratamiento de oliva condicin pueden esperar sin ningn riesgo hasta que usted sea atendida/o en el consultorio de oliva mdico o nick clnica. Es responsabilidad suya arreglar nick lazara para el seguimiento del kandis. MANEJO DE CONDICIONES NO URGENTES EN EL FUTURO 1) Si usted tiene un mdico de atencin primaria: Usted debera llamar a oliva mdico de atencin primaria antes de venir al departamento de emergencia. Despus de las horas de consultorio, oliva doctor o oliva asociado/a est disponible por telfono. El mdico o enfermero de reggie en el servicio telefnico puede asesorarle por kwaku medio para atender el problema, o kandis contrario se puede programar nick lazara. 2) Si usted no tiene un mdico de atencin primaria: Llame al mdico o clnica de referencia que aparece abajo theo las horas de c onsultorio para hacer nick lazara para que le vean. CLINICAS: [facility] [phone] [facility] 752 [phone] [facility] [phone] [place] [id number] [phone] [place] [address] [phone] [facility]. [phone] [facility] Hours: Mon-Fri 9:00 AM - 5:[address] [facility] () Usted se murrieta hecho un examen mdico de control que le indica que no est en nick condicin que requiera tratamiento urgente en el Departamento de Emergencia. Un estudio ms profundo y el tratamiento de oliva condicin pueden esperar sin ningn riesgo hasta que usted sea atendida/o en el consultorio de oliva mdico o nick clnica. Es responsabilidad suya arreglar nick lazara para el seguimiento del kandis. MANEJO DE CONDICIONES NO URGENTES EN EL FUTURO 1) Si usted tiene un mdico de atencin primaria: Usted debera llamar a oliva mdico de atencin primaria antes de venir al departamento de emergencia. Despus de las horas de consultorio, oliva doctor o oliva asociado/a est disponible por telfono. El mdico o enfermero de reggie en el servicio telefnico puede asesorarle por kwaku medio para atender el problema, o kandis contrario se puede programar nick lazara. 2) Si usted no tiene un mdico de atencin primaria: Llame al mdico o condado institucions de referencia que aparece abajo theo las horas de consultorio para hacer nick lazara para que le vean. SI USTED NO PUEDE PAGAR PARA JEFF UN MEDICO puede ir a: [facility] [address] [place] [address] [facility] [address] [place] [address] [facility] [address] [place] [address] [facility] [address] [place] [address] Additional Instructions: Google Translate utilizado para la traduccin de las siguientes lneas, por favor, disculpe los errores. Muchas jaime por permitirnos participar en oliva cuidado. Oliva jignesh y seguridad es nuestra principal prioridad en [facility]. Es importante leer todas las instrucciones de kathy y la educacin que se proporcionan en oliva paquete de kathy. Llame a oliva mdico de atencin primaria MAANA para nick lazara theo los prximos 2 a 4 [place] y lleve toda la informacin y los medicamentos recetados. --Ibuprofeno es un medicamento que ayuda con el dolor / inflamacin. En la dosis de 600 a 800 mg, esto ayudar con la inflamacin / hinchazn. [place] irina medicamento segn las indicaciones. --Acetaminofeno vineet medicamento para el dolor y / o fiebre. [place] irina medicamento segn sea necesario para el dolor leve a moderado. Irina medicamento no causar somnolencia. Llene las recetas y siga exactamente las instrucciones de la etiqueta. Si los sntomas empeoran y oliva proveedor no est disponible, regrese inmediatamente al Departamento de Emergencias. ----- Google Translate used for translation of following lines, please excuse errors. Thank you very much for allowing us to participate in your care. Your health and safety is our top priority at [facility]. It is important to read all discharge instructions and education provided in your discharge packet. Call your primary care doctor TOMORROW for an appointment during the next 2-4 days and bring all the information and medications prescribed. Have prescriptions filled and follow precisely the directions on the label. --Ibuprofen is a medication that will help with pain/inflammation. At the dosage of 600 to 800 mg, this will help with inflammation/swelling. Take this medication as prescribed. --Acetaminophen as a medication for pain and/or fever. Take this medication as needed for mild to moderate pain. This medication will not cause drowsiness. If the symptoms get worse and your provider is unavailable, return to the Emergency Department immediately. KARLA HELM NP Nov 19, 2018 10:42
== END 2018-11-19 10:45 | disposition home or self-care (01) ==
LOC: FTE 09:17
DX: M25.561 Pain in right knee (principal)
CPT/HCPCS: 73562; 96372; J1885; Z7502